=== PATIENT | male | born 1930 | race Caucasian/White ===

== ENCOUNTER 2017-03-20 00:56 | Inpatient (IN) | payer OTHER ==
[~2017-03-20] VITALS: Ht 172.7 cm; Wt 44.9 kg
[2017-03-20 00:56] VITALS: BP_SYST 113
[2017-03-20 04:30] LABS: ANION GAP 6 (5-15); CALCIUM 8.2 mg/dL (8.4-11.0); CHLORIDE 107 mmol/L (98-107); CREATININE 0.99 mg/dL (0.55-1.30); GLUCOSE 91 mg/dL (70-99); POTASSIUM 3.6 mmol/L (3.5-5.1); SODIUM SERUM 141 mmol/L (136-145); UREA NITROGEN, BLOOD 17 mg/dL (8-21)
[2017-03-20 04:35] LABS: ALANINE AMINOTRANSFERASE 12 U/L (12-78); ALBUMIN 2.8 g/dL (3.4-4.8); ASPARTATE AMINOTRANSFERASE 31 U/L (10-37); TOTAL BILIRUBIN 2.2 mg/dL (0.0-1.0); TOTAL PROTEIN, SERUM 6.1 g/dL (6.4-8.3)
[2017-03-20 04:38] LABS: BASOPHILS % (AUTO) 0.3 % (0.0-2.0); EOSINOPHILS % (AUTO) 0.5 % (0.0-4.0); HEMATOCRIT 34.1 % (36-54); HEMOGLOBIN 11.4 g/dL (14.0-18.0); LYMPHOCYTES # (AUTO) 0.6 K/uL (1.0-5.5); LYMPHOCYTES % (AUTO) 9.8 % (20.5-51.5); MEAN CORPUSCULAR HEMOGLOBIN 33 pg (27-31); MEAN CORPUSCULAR HGB CONC 34 % (32-36); MEAN CORPUSCULAR VOLUME 97 fL (79.0-98.0); MONOCYTES # (AUTO) 0.4 K/uL (0.0-1.0); MONOCYTES % (AUTO) 5.8 % (1.7-9.3); NEUTROPHILS % (AUTO) 83.6 % (40.0-70.0); PLATELET COUNT (AUTO) 218 K/uL (130-430); RED BLOOD CELL COUNT(AUTO) 3.52 MIL/uL (4.2-6.2); RED CELL DISTRIBUTION WIDTH 13.6 % (9.0-15.0)
[2017-03-20] MEDS ORDERED: LIDOCAINE 1% 10 MG/ML, 20 ML MDV INJ ONE (06:30)
[2017-03-20] MEDS ORDERED: LORazepam 2 MG/ML VIAL IVP ONE (07:15)
[2017-03-20] MEDS ORDERED: LORazepam 2 MG/ML VIAL (FOR ER USE) ONE (07:27)
[2017-03-20] MEDS ORDERED: ONDANSETRON HCL 4 MG/2 ML VIAL IVP PRN (09:00)
[2017-03-20] MEDS ORDERED: ALBUTEROL SULFATE 0.083% 2.5 MG/3 ML VIAL.NEB INH PRN (09:00)
[2017-03-20] MEDS ORDERED: ERGO500043 PO (10:31)
[2017-03-20 10:32] VITALS: BP_SYST 116
[2017-03-20] MEDS ORDERED: DIATR MEGLU/DIATRIZ SOD 30 ML SOLUTION PO ONE (11:02)
[2017-03-20 12:02] VITALS: BP_SYST 151
[2017-03-20] MEDS: NACL 0.9% 1,000 ML IV SCH (14:04)
[2017-03-20] MEDS: ENOXAPARIN SODIUM 30 MG/0.3 ML SYRINGE SUBCUT SCH (14:58)
[2017-03-20 16:31] VITALS: BP_SYST 112
[2017-03-20 20:00] VITALS: BP_SYST 134
[2017-03-20] MEDS ORDERED: COMMUNICATION ORDER XX SCH (21:15)
[2017-03-20] MEDS ORDERED: COMMUNICATION ORDER XX ONE (21:15)
[2017-03-20 23:29] VITALS: BP_SYST 133
[2017-03-21] MEDS: NACL 0.9% 1,000 ML IV SCH ×2 (03:19→16:41)
[2017-03-21 04:20] VITALS: BP_SYST 126
[2017-03-21 06:57] LABS: BASOPHILS % (AUTO) 0.2 % (0.0-2.0); EOSINOPHILS % (AUTO) 0.8 % (0.0-4.0); HEMATOCRIT 31.8 % (36-54); HEMOGLOBIN 10.7 g/dL (14.0-18.0); LYMPHOCYTES # (AUTO) 0.8 K/uL (1.0-5.5); LYMPHOCYTES % (AUTO) 14.6 % (20.5-51.5); MEAN CORPUSCULAR HEMOGLOBIN 33 pg (27-31); MEAN CORPUSCULAR HGB CONC 34 % (32-36); MEAN CORPUSCULAR VOLUME 97 fL (79.0-98.0); MONOCYTES # (AUTO) 0.3 K/uL (0.0-1.0); MONOCYTES % (AUTO) 5.7 % (1.7-9.3); NEUTROPHILS # (AUTO) 4.4 K/uL (1.8-7.7); NEUTROPHILS % (AUTO) 78.7 % (40.0-70.0); PLATELET COUNT (AUTO) 199 K/uL (130-430); RED BLOOD CELL COUNT(AUTO) 3.28 MIL/uL (4.2-6.2); WHITE BLOOD COUNT (AUTO) 5.5 K/uL (4.8-10.8)
[2017-03-21 07:04] LABS: ANION GAP 8 (5-15); CALCIUM 8.1 mg/dL (8.4-11.0); CHLORIDE 110 mmol/L (98-107); CREATININE 0.95 mg/dL (0.55-1.30); GLUCOSE 74 mg/dL (70-99); POTASSIUM 4.1 mmol/L (3.5-5.1); SODIUM SERUM 144 mmol/L (136-145); UREA NITROGEN, BLOOD 17 mg/dL (8-21)
[2017-03-21 07:52] VITALS: BP_SYST 150
[2017-03-21] MEDS: ENOXAPARIN SODIUM 30 MG/0.3 ML SYRINGE SUBCUT SCH (08:30)
[2017-03-21 09:33] VITALS: BP_SYST 130
[2017-03-21] MEDS ORDERED: MEGESTROL ACETATE 400 MG/10 ML UDC PO ONE (11:15)
[2017-03-21 11:48] VITALS: BP_SYST 137
[2017-03-21 17:11] VITALS: BP_SYST 143
[2017-03-21 23:44] VITALS: BP_SYST 151
[2017-03-22 04:00] VITALS: BP_SYST 150
[2017-03-22] MEDS: NACL 0.9% 1,000 ML IV SCH ×3 (06:25→20:54)
[2017-03-22 07:03] LABS: BASOPHILS % (AUTO) 0.3 % (0.0-2.0); EOSINOPHILS # (AUTO) 0.1 K/uL (0.0-0.4); HEMATOCRIT 30.3 % (36-54); HEMOGLOBIN 10.1 g/dL (14.0-18.0); LYMPHOCYTES # (AUTO) 0.7 K/uL (1.0-5.5); MEAN CORPUSCULAR HEMOGLOBIN 32 pg (27-31); MEAN CORPUSCULAR HGB CONC 33 % (32-36); MEAN CORPUSCULAR VOLUME 97 fL (79.0-98.0); MONOCYTES # (AUTO) 0.3 K/uL (0.0-1.0); MONOCYTES % (AUTO) 5.8 % (1.7-9.3); NEUTROPHILS # (AUTO) 4.4 K/uL (1.8-7.7); NEUTROPHILS % (AUTO) 80.9 % (40.0-70.0); PLATELET COUNT (AUTO) 169 K/uL (130-430); RED BLOOD CELL COUNT(AUTO) 3.12 MIL/uL (4.2-6.2); RED CELL DISTRIBUTION WIDTH 14.2 % (9.0-15.0); WHITE BLOOD COUNT (AUTO) 5.5 K/uL (4.8-10.8)
[2017-03-22 07:12] LABS: ALANINE AMINOTRANSFERASE 11 U/L (12-78); ALBUMIN 2.4 g/dL (3.4-4.8); ANION GAP 5 (5-15); ASPARTATE AMINOTRANSFERASE 36 U/L (10-37); CALCIUM 7.5 mg/dL (8.4-11.0); CHLORIDE 113 mmol/L (98-107); CREATININE 0.71 mg/dL (0.55-1.30); GLUCOSE 96 mg/dL (70-99); POTASSIUM 4.1 mmol/L (3.5-5.1); SODIUM SERUM 144 mmol/L (136-145); TOTAL BILIRUBIN 1.7 mg/dL (0.0-1.0); TOTAL PROTEIN, SERUM 5.2 g/dL (6.4-8.3); UREA NITROGEN, BLOOD 14 mg/dL (8-21)
[2017-03-22 08:00] VITALS: BP_SYST 155
[2017-03-22] MEDS: MEGESTROL ACETATE 400 MG/10 ML UDC PO SCH (09:00)
[2017-03-22] MEDS: ENOXAPARIN SODIUM 30 MG/0.3 ML SYRINGE SUBCUT SCH (09:33)
[2017-03-22 12:00] VITALS: BP_SYST 141
[2017-03-22 16:00] VITALS: BP_SYST 112
[2017-03-22 20:30] VITALS: BP_SYST 123
[2017-03-22 23:11] VITALS: BP_SYST 130
[2017-03-23 03:24] VITALS: BP_SYST 143
[2017-03-23 08:28] VITALS: BP_SYST 147
[2017-03-23] MEDS: ENOXAPARIN SODIUM 30 MG/0.3 ML SYRINGE SUBCUT SCH ×2 (09:00→09:08)
[2017-03-23] MEDS: MEGESTROL ACETATE 400 MG/10 ML UDC PO SCH ×2 (09:00→09:08)
[2017-03-23] MEDS: NACL 0.9% 1,000 ML IV SCH (11:45)
[2017-03-23 12:09] VITALS: BP_SYST 152
[2017-03-23 16:03] VITALS: BP_SYST 120
[2017-03-23 19:30] VITALS: BP_SYST 126
[2017-03-23 21:00] VITALS: BP_SYST 126
[2017-03-24] VITALS (7 sets, daily range): BP systolic 125–151
[2017-03-24] MEDS: NACL 0.9% 1,000 ML IV SCH ×2 (03:15→15:32)
[2017-03-24] MEDS: ENOXAPARIN SODIUM 30 MG/0.3 ML SYRINGE SUBCUT SCH (09:46)
[2017-03-24] MEDS: MEGESTROL ACETATE 400 MG/10 ML UDC PO SCH (09:47)
[2017-03-25] VITALS (7 sets, daily range): BP systolic 121–144
[2017-03-25] MEDS: NACL 0.9% 1,000 ML IV SCH ×2 (05:31→22:18)
[2017-03-25 06:40] LABS: BASOPHILS % (AUTO) 0.2 % (0.0-2.0); EOSINOPHILS # (AUTO) 0.1 K/uL (0.0-0.4); HEMATOCRIT 26.6 % (36-54); HEMOGLOBIN 9.1 g/dL (14.0-18.0); LYMPHOCYTES # (AUTO) 0.5 K/uL (1.0-5.5); LYMPHOCYTES % (AUTO) 10.2 % (20.5-51.5); MEAN CORPUSCULAR HEMOGLOBIN 33 pg (27-31); MEAN CORPUSCULAR HGB CONC 34 % (32-36); MEAN CORPUSCULAR VOLUME 97 fL (79.0-98.0); MONOCYTES # (AUTO) 0.4 K/uL (0.0-1.0); MONOCYTES % (AUTO) 7.3 % (1.7-9.3); NEUTROPHILS % (AUTO) 81.3 % (40.0-70.0); PLATELET COUNT (AUTO) 156 K/uL (130-430); RED BLOOD CELL COUNT(AUTO) 2.74 MIL/uL (4.2-6.2)
[2017-03-25 06:48] LABS: ALANINE AMINOTRANSFERASE 7 U/L (12-78); ANION GAP 8 (5-15); ASPARTATE AMINOTRANSFERASE 30 U/L (10-37); CALCIUM 7.3 mg/dL (8.4-11.0); CHLORIDE 109 mmol/L (98-107); CREATININE 0.48 mg/dL (0.55-1.30); GLUCOSE 83 mg/dL (70-99); POTASSIUM 3.1 mmol/L (3.5-5.1); SODIUM SERUM 139 mmol/L (136-145); TOTAL PROTEIN, SERUM 4.9 g/dL (6.4-8.3); UREA NITROGEN, BLOOD 8 mg/dL (8-21)
[2017-03-25 06:58] LABS: INR 1.1 (0.80-1.20)
[2017-03-25] MEDS ORDERED: CEFAZOLIN 1 GM IVPB PREMIX 50 ML IV ONE (07:00)
[2017-03-25] MEDS: MIDAZOLAM HCL 5 MG/5 ML VIAL ONE ×3 (07:05→08:11)
[2017-03-25] MEDS: MEPERIDINE HCL/PF 100 MG/ML AMP ONE ×3 (07:05→08:11)
[2017-03-25] MEDS: MEGESTROL ACETATE 400 MG/10 ML UDC PO SCH (09:00)
[2017-03-25] MEDS: ENOXAPARIN SODIUM 30 MG/0.3 ML SYRINGE SUBCUT SCH (09:46)
[2017-03-25] MEDS ORDERED: POTASSIUM CHLORIDE 40 MEQ in NS 250 ML IV ONE (10:30)
[2017-03-26 00:11] VITALS: BP_SYST 117
[2017-03-26 04:20] VITALS: BP_SYST 124
[2017-03-26 06:43] LABS: ANION GAP 5 (5-15); CALCIUM 7.4 mg/dL (8.4-11.0); CHLORIDE 107 mmol/L (98-107); CREATININE 0.57 mg/dL (0.55-1.30); GLUCOSE 78 mg/dL (70-99); POTASSIUM 3.9 mmol/L (3.5-5.1); SODIUM SERUM 137 mmol/L (136-145); UREA NITROGEN, BLOOD 7 mg/dL (8-21)
[2017-03-26 06:52] LABS: BASOPHILS % (AUTO) 0.2 % (0.0-2.0); EOSINOPHILS # (AUTO) 0.1 K/uL (0.0-0.4); EOSINOPHILS % (AUTO) 1.8 % (0.0-4.0); HEMOGLOBIN 9.5 g/dL (14.0-18.0); LYMPHOCYTES # (AUTO) 0.5 K/uL (1.0-5.5); LYMPHOCYTES % (AUTO) 9.2 % (20.5-51.5); MEAN CORPUSCULAR HEMOGLOBIN 33 pg (27-31); MEAN CORPUSCULAR HGB CONC 34 % (32-36); MEAN CORPUSCULAR VOLUME 98 fL (79.0-98.0); MONOCYTES # (AUTO) 0.3 K/uL (0.0-1.0); MONOCYTES % (AUTO) 6.6 % (1.7-9.3); NEUTROPHILS % (AUTO) 82.2 % (40.0-70.0); PLATELET COUNT (AUTO) 156 K/uL (130-430); RED BLOOD CELL COUNT(AUTO) 2.87 MIL/uL (4.2-6.2); RED CELL DISTRIBUTION WIDTH 14.1 % (9.0-15.0); WHITE BLOOD COUNT (AUTO) 4.9 K/uL (4.8-10.8)
[2017-03-26 08:00] VITALS: BP_SYST 135
[2017-03-26] MEDS: ENOXAPARIN SODIUM 30 MG/0.3 ML SYRINGE SUBCUT SCH (09:35)
[2017-03-26] MEDS: MEGESTROL ACETATE 400 MG/10 ML UDC PO SCH (09:35)
[2017-03-26] MEDS ORDERED: *TPN PER PHARMACY XX PRN (10:15)
[2017-03-26 11:07] LABS: PHOSPHORUS 1.9 mg/dL (2.7-4.5)
[2017-03-26] MEDS: NACL 0.9% 1,000 ML IV SCH (11:41)
[2017-03-26 12:05] VITALS: BP_SYST 160
[2017-03-26 16:27] VITALS: BP_SYST 159
[2017-03-26] MEDS ORDERED: TPN CENTRAL 0.0001 ML, SODIUM ACETATE 40 MEQ, POTASSIUM CHLORIDE 20 MEQ, K PHOS 12 MM, ... IV SCH ×10 (18:00)
[2017-03-26 19:30] VITALS: BP_SYST 148
[2017-03-27] VITALS (7 sets, daily range): BP systolic 135–171
[2017-03-27] MEDS: FAT EMULSIONS 250 ML IV SCH ×2 (00:16→17:55)
[2017-03-27] MEDS: NACL 0.9% 1,000 ML IV SCH ×3 (01:22→23:39)
[2017-03-27 07:18] LABS: BASOPHILS % (AUTO) 0.2 % (0.0-2.0); EOSINOPHILS % (AUTO) 0.9 % (0.0-4.0); HEMATOCRIT 28.2 % (36-54); HEMOGLOBIN 9.6 g/dL (14.0-18.0); LYMPHOCYTES # (AUTO) 0.4 K/uL (1.0-5.5); LYMPHOCYTES % (AUTO) 7.8 % (20.5-51.5); MEAN CORPUSCULAR HEMOGLOBIN 33 pg (27-31); MEAN CORPUSCULAR HGB CONC 34 % (32-36); MEAN CORPUSCULAR VOLUME 96 fL (79.0-98.0); MONOCYTES # (AUTO) 0.3 K/uL (0.0-1.0); MONOCYTES % (AUTO) 5.7 % (1.7-9.3); NEUTROPHILS # (AUTO) 4.4 K/uL (1.8-7.7); NEUTROPHILS % (AUTO) 85.4 % (40.0-70.0); PLATELET COUNT (AUTO) 167 K/uL (130-430); RED BLOOD CELL COUNT(AUTO) 2.92 MIL/uL (4.2-6.2); RED CELL DISTRIBUTION WIDTH 13.7 % (9.0-15.0); WHITE BLOOD COUNT (AUTO) 5.1 K/uL (4.8-10.8)
[2017-03-27 07:19] LABS: ANION GAP 6 (5-15); CALCIUM 7.2 mg/dL (8.4-11.0); CHLORIDE 104 mmol/L (98-107); CREATININE 0.51 mg/dL (0.55-1.30); GLUCOSE 152 mg/dL (70-99); PHOSPHORUS 2.1 mg/dL (2.7-4.5); SODIUM SERUM 135 mmol/L (136-145); UREA NITROGEN, BLOOD 7 mg/dL (8-21)
[2017-03-27 07:37] LABS: POTASSIUM 2.9 mmol/L (3.5-5.1)
[2017-03-27] MEDS: ENOXAPARIN SODIUM 30 MG/0.3 ML SYRINGE SUBCUT SCH (08:46)
[2017-03-27] MEDS: MEGESTROL ACETATE 400 MG/10 ML UDC PO SCH (08:47)
[2017-03-27] MEDS: VIT D PO SCH ×2 (08:47→11:16)
[2017-03-27] MEDS ORDERED: POTASSIUM CHLORIDE 40 MEQ in NS 250 ML IV ONE (10:00)
[2017-03-27] MEDS ORDERED: DEXTROSE 50%-WATER 50 ML DISP.SYRIN IVP PRN ×2 (12:00)
[2017-03-27] MEDS ORDERED: GLUCOSE 15 GM GEL (in 37.5 GM TUBE) PO PRN ×2 (12:00)
[2017-03-27 15:41] LABS: BILIRUBIN,URINE NEGATIVE (NEGATIVE); BLOOD, URINE NEGATIVE (NEGATIVE); CLARITY/URINE CLEAR (CLEAR); COLOR,URINE YELLOW (YELLOW); GLUCOSE,URINE NEGATIVE (NEGATIVE); KETONES,URINE NEGATIVE (NEGATIVE); LEUKOCYTE ESTERASE ,URINE NEGATIVE (NEGATIVE); NITRITE, URINE NEGATIVE (NEGATIVE); PH,URINE 5.5 (5.0-8.0); PROTEIN URINE NEGATIVE (NEGATIVE)
[2017-03-27] MEDS ORDERED: POTASSIUM CHLORIDE IV SCH ×10 (18:00)
[2017-03-27] MEDS ORDERED: [UNRECOGNIZED DRUG - OTHER] IV SCH ×10 (18:00)
[2017-03-27] MEDS ORDERED: SODIUM ACETATE IV SCH ×10 (18:00)
[2017-03-27] MEDS ORDERED: TPN CENTRAL IV SCH ×10 (18:00)
[2017-03-27] MEDS ORDERED: K PHOS IV SCH ×10 (18:00)
[2017-03-27] MEDS: INSULIN REGULAR, HUMAN 100 UNITS/ML, 10 ML VIAL (novoLIN R) SUBCUT PRN (18:10)
[2017-03-28] VITALS (13 sets, daily range): BP systolic 91–178
[2017-03-28 06:44] LABS: ALANINE AMINOTRANSFERASE 13 U/L (12-78); ALBUMIN 2.2 g/dL (3.4-4.8); ANION GAP 6 (5-15); ASPARTATE AMINOTRANSFERASE 39 U/L (10-37); CALCIUM 7.5 mg/dL (8.4-11.0); CHLORIDE 101 mmol/L (98-107); CREATININE 0.65 mg/dL (0.55-1.30); GLUCOSE 130 mg/dL (70-99); PHOSPHORUS 2.3 mg/dL (2.7-4.5); POTASSIUM 3.5 mmol/L (3.5-5.1); SODIUM SERUM 135 mmol/L (136-145); TOTAL BILIRUBIN 1.3 mg/dL (0.0-1.0); TOTAL PROTEIN, SERUM 5.6 g/dL (6.4-8.3); UREA NITROGEN, BLOOD 8 mg/dL (8-21)
[2017-03-28 06:58] LABS: BASOPHILS % (AUTO) 0.1 % (0.0-2.0); EOSINOPHILS % (AUTO) 0.1 % (0.0-4.0); HEMATOCRIT 30.2 % (36-54); HEMOGLOBIN 10.3 g/dL (14.0-18.0); LYMPHOCYTES # (AUTO) 0.3 K/uL (1.0-5.5); LYMPHOCYTES % (AUTO) 4.1 % (20.5-51.5); MEAN CORPUSCULAR HEMOGLOBIN 33 pg (27-31); MEAN CORPUSCULAR HGB CONC 34 % (32-36); MEAN CORPUSCULAR VOLUME 96 fL (79.0-98.0); MONOCYTES # (AUTO) 0.6 K/uL (0.0-1.0); MONOCYTES % (AUTO) 8.1 % (1.7-9.3); NEUTROPHILS # (AUTO) 6.6 K/uL (1.8-7.7); NEUTROPHILS % (AUTO) 87.6 % (40.0-70.0); PLATELET COUNT (AUTO) 181 K/uL (130-430); RED BLOOD CELL COUNT(AUTO) 3.16 MIL/uL (4.2-6.2); WHITE BLOOD COUNT (AUTO) 7.5 K/uL (4.8-10.8)
[2017-03-28] MEDS: ACETAMINOPHEN 325 MG TABLET PO PRN ×2 (08:49→08:52)
[2017-03-28] MEDS: MEGESTROL ACETATE 400 MG/10 ML UDC PO SCH (08:51)
[2017-03-28] MEDS: ENOXAPARIN SODIUM 30 MG/0.3 ML SYRINGE SUBCUT SCH (09:37)
[2017-03-28] MEDS ORDERED: GLYCOPYRROLATE 0.2 MG/ML VIAL IJ ONE (14:13)
[2017-03-28] MEDS ORDERED: MIDAZOLAM HCL 5 MG/5 ML VIAL IVP ONE (14:13)
[2017-03-28] MEDS ORDERED: PROPOFOL 200MG/ 20ML VIAL (DIPRIVAN) IV ONE (14:13)
[2017-03-28] MEDS ORDERED: ROCURONIUM BROMIDE 10 MG/ML (ZEMURON) IV ONE (14:13)
[2017-03-28] MEDS ORDERED: ONDANSETRON HCL 4 MG/2 ML VIAL IVP ONE (14:13)
[2017-03-28] MEDS ORDERED: NEOSTIGMINE METHYLSULFATE 1 MG/ML, 10 ML VIAL IVP ONE (14:13)
[2017-03-28] MEDS ORDERED: SEVOFLURANE 15 MIN GAS INH ONE (14:13)
[2017-03-28] MEDS ORDERED: LR 1,000 ML IV.SOLN IV ONE (14:13)
[2017-03-28] MEDS ORDERED: fentaNYL CITRATE/PF 100 MCG/2 ML AMP IVP ONE (14:13)
[2017-03-28] MEDS ORDERED: LR 1,000 ML IV SCH (15:11)
[2017-03-28] MEDS ORDERED: MEPERIDINE HCL/PF 25 MG/ML DISP.SYRIN IVP PRN ×2 (15:15)
[2017-03-28] MEDS ORDERED: HYDROmorphone 1 MG INJ. 1 MG/ML AMPUL IVP PRN (15:15)
[2017-03-28] MEDS ORDERED: HYDROmorphone 2 MG/ML VIAL IVP PRN (15:15)
[2017-03-28] MEDS ORDERED: ONDANSETRON HCL 4 MG/2 ML VIAL IVP PRN (15:15)
[2017-03-28] MEDS: NACL 0.9% 1,000 ML IV SCH (17:29)
[2017-03-28] MEDS ORDERED: SODIUM ACETATE IV SCH ×10 (18:00)
[2017-03-28] MEDS ORDERED: POTASSIUM CHLORIDE IV SCH ×10 (18:00)
[2017-03-28] MEDS ORDERED: K PHOS IV SCH ×10 (18:00)
[2017-03-28] MEDS ORDERED: [UNRECOGNIZED DRUG - OTHER] IV SCH ×10 (18:00)
[2017-03-28] MEDS ORDERED: TPN CENTRAL IV SCH ×10 (18:00)
[2017-03-28 18:29] LABS: ABG TOTAL HEMOGLOBIN 11.9 G/dL (12.0-18.0); BLOOD GAS BASE EXCESS -2.6 mmol/L (-3.0-3.0); BLOOD GAS COHb% 0.1 % (0.5-1.5); BLOOD GAS PH 7.498 (7.350-7.450); BLOOD O2Hb% 98.5 % (94.0-97.0)
[2017-03-28] MEDS ORDERED: LORazepam 2 MG/ML VIAL IVP PRN (18:30)
[2017-03-28] MEDS: FAT EMULSIONS 250 ML IV SCH (20:55)
[2017-03-29] VITALS (29 sets, daily range): BP systolic 121–155
[2017-03-29] MEDS: INSULIN REGULAR, HUMAN 100 UNITS/ML, 10 ML VIAL (novoLIN R) SUBCUT PRN ×2 (00:17→05:49)
[2017-03-29] MEDS: LORazepam 2 MG/ML VIAL IVP PRN (03:51)
[2017-03-29] MEDS: NACL 0.9% 1,000 ML IV SCH ×2 (06:38→18:36)
[2017-03-29 07:24] LABS: BASOPHILS % (AUTO) 0.1 % (0.0-2.0); HEMATOCRIT 27.8 % (36-54); HEMOGLOBIN 9.7 g/dL (14.0-18.0); LYMPHOCYTES # (AUTO) 0.2 K/uL (1.0-5.5); LYMPHOCYTES % (AUTO) 2.3 % (20.5-51.5); MEAN CORPUSCULAR HEMOGLOBIN 34 pg (27-31); MEAN CORPUSCULAR HGB CONC 35 % (32-36); MEAN CORPUSCULAR VOLUME 96 fL (79.0-98.0); MONOCYTES # (AUTO) 0.6 K/uL (0.0-1.0); MONOCYTES % (AUTO) 5.7 % (1.7-9.3); NEUTROPHILS # (AUTO) 9.1 K/uL (1.8-7.7); NEUTROPHILS % (AUTO) 91.9 % (40.0-70.0); PLATELET COUNT (AUTO) 186 K/uL (130-430); RED BLOOD CELL COUNT(AUTO) 2.89 MIL/uL (4.2-6.2); RED CELL DISTRIBUTION WIDTH 14.1 % (9.0-15.0); WHITE BLOOD COUNT (AUTO) 9.9 K/uL (4.8-10.8)
[2017-03-29 08:14] LABS: ANION GAP 9 (5-15); CHLORIDE 98 mmol/L (98-107); POTASSIUM 4.4 mmol/L (3.5-5.1); SODIUM SERUM 131 mmol/L (136-145)
[2017-03-29 08:15] LABS: ALANINE AMINOTRANSFERASE 14 U/L (12-78); ASPARTATE AMINOTRANSFERASE 112 U/L (10-37); CALCIUM 7.4 mg/dL (8.4-11.0); CREATININE 0.78 mg/dL (0.55-1.30); GLUCOSE 133 mg/dL (70-99); TOTAL BILIRUBIN 1.8 mg/dL (0.0-1.0); TOTAL PROTEIN, SERUM 5.3 g/dL (6.4-8.3); UREA NITROGEN, BLOOD 16 mg/dL (8-21)
[2017-03-29 08:16] LABS: ALBUMIN 2.1 g/dL (3.4-4.8)
[2017-03-29] MEDS: ENOXAPARIN SODIUM 30 MG/0.3 ML SYRINGE SUBCUT SCH (08:41)
[2017-03-29] MEDS: MEGESTROL ACETATE 400 MG/10 ML UDC PO SCH (08:42)
[2017-03-29 10:03] LABS: ABG TOTAL HEMOGLOBIN 10.2 G/dL (12.0-18.0); BLOOD GAS BASE EXCESS 2.9 mmol/L (-3.0-3.0); BLOOD GAS COHb% 0.3 % (0.5-1.5); BLOOD GAS HHB 1.7 % (0.0-6.0); BLOOD GAS PH 7.562 (7.350-7.450); BLOOD O2Hb% 97.4 % (94.0-97.0)
[2017-03-29] MEDS ORDERED: SODIUM CHLORIDE IV SCH ×11 (18:00)
[2017-03-29] MEDS ORDERED: SODIUM ACETATE IV SCH ×11 (18:00)
[2017-03-29] MEDS ORDERED: TPN CENTRAL IV SCH ×11 (18:00)
[2017-03-29] MEDS ORDERED: [UNRECOGNIZED DRUG - OTHER] IV SCH ×11 (18:00)
[2017-03-29] MEDS: FAT EMULSIONS 250 ML IV SCH (18:36)
[2017-03-30] VITALS (35 sets, daily range): BP systolic 113–166
[2017-03-30] MEDS: NACL 0.9% 1,000 ML IV SCH (06:30)
[2017-03-30 06:56] LABS: ALANINE AMINOTRANSFERASE 16 U/L (12-78); ALBUMIN 1.8 g/dL (3.4-4.8); ANION GAP 5 (5-15); ASPARTATE AMINOTRANSFERASE 93 U/L (10-37); CALCIUM 7.2 mg/dL (8.4-11.0); CHLORIDE 100 mmol/L (98-107); CREATININE 0.55 mg/dL (0.55-1.30); GLUCOSE 102 mg/dL (70-99); POTASSIUM 3.6 mmol/L (3.5-5.1); SODIUM SERUM 131 mmol/L (136-145); TOTAL BILIRUBIN 2.1 mg/dL (0.0-1.0); TOTAL PROTEIN, SERUM 4.7 g/dL (6.4-8.3); UREA NITROGEN, BLOOD 15 mg/dL (8-21)
[2017-03-30 07:18] LABS: BASOPHILS % (AUTO) 0.1 % (0.0-2.0); EOSINOPHILS % (AUTO) 0.1 % (0.0-4.0); HEMATOCRIT 23.2 % (36-54); HEMOGLOBIN 7.9 g/dL (14.0-18.0); LYMPHOCYTES # (AUTO) 0.3 K/uL (1.0-5.5); LYMPHOCYTES % (AUTO) 3.8 % (20.5-51.5); MEAN CORPUSCULAR HEMOGLOBIN 33 pg (27-31); MEAN CORPUSCULAR HGB CONC 34 % (32-36); MONOCYTES # (AUTO) 0.3 K/uL (0.0-1.0); MONOCYTES % (AUTO) 4.9 % (1.7-9.3); NEUTROPHILS # (AUTO) 6.1 K/uL (1.8-7.7); NEUTROPHILS % (AUTO) 91.1 % (40.0-70.0); PLATELET COUNT (AUTO) 127 K/uL (130-430); RED BLOOD CELL COUNT(AUTO) 2.37 MIL/uL (4.2-6.2); RED CELL DISTRIBUTION WIDTH 14.6 % (9.0-15.0); WHITE BLOOD COUNT (AUTO) 6.7 K/uL (4.8-10.8)
[2017-03-30 08:07] LABS: MEAN CORPUSCULAR VOLUME 98 fL (79.0-98.0)
[2017-03-30] MEDS: ENOXAPARIN SODIUM 30 MG/0.3 ML SYRINGE SUBCUT SCH (08:45)
[2017-03-30] MEDS: MEGESTROL ACETATE 400 MG/10 ML UDC PO SCH (08:45)
[2017-03-30] MEDS ORDERED: FUROSEMIDE 20 MG/2 ML VIAL IVP ONE (14:45)
[2017-03-30] MEDS: LORazepam 2 MG/ML VIAL IVP PRN (15:53)
[2017-03-30] MEDS ORDERED: SODIUM CHLORIDE IV SCH ×11 (18:00)
[2017-03-30] MEDS ORDERED: SODIUM ACETATE IV SCH ×11 (18:00)
[2017-03-30] MEDS ORDERED: TPN CENTRAL IV SCH ×11 (18:00)
[2017-03-30] MEDS ORDERED: [UNRECOGNIZED DRUG - OTHER] IV SCH ×11 (18:00)
[2017-03-30] MEDS: FAT EMULSIONS 250 ML IV SCH (18:33)
[2017-03-30] MEDS: TPN CENTRAL IV SCH ×11 (20:24)
[2017-03-30] MEDS: [UNRECOGNIZED DRUG - OTHER] IV SCH ×11 (20:24)
[2017-03-30] MEDS: SODIUM ACETATE IV SCH ×11 (20:24)
[2017-03-30] MEDS: SODIUM CHLORIDE IV SCH ×11 (20:24)
[2017-03-31] VITALS (28 sets, daily range): BP systolic 120–159
[2017-03-31 07:13] LABS: BASOPHILS % (AUTO) 0.2 % (0.0-2.0); EOSINOPHILS % (AUTO) 0.3 % (0.0-4.0); HEMATOCRIT 26.6 % (36-54); HEMOGLOBIN 8.9 g/dL (14.0-18.0); LYMPHOCYTES # (AUTO) 0.2 K/uL (1.0-5.5); LYMPHOCYTES % (AUTO) 3.1 % (20.5-51.5); MEAN CORPUSCULAR HEMOGLOBIN 32 pg (27-31); MEAN CORPUSCULAR HGB CONC 33 % (32-36); MEAN CORPUSCULAR VOLUME 97 fL (79.0-98.0); MONOCYTES # (AUTO) 0.2 K/uL (0.0-1.0); MONOCYTES % (AUTO) 3.3 % (1.7-9.3); NEUTROPHILS # (AUTO) 5.9 K/uL (1.8-7.7); NEUTROPHILS % (AUTO) 93.1 % (40.0-70.0); PLATELET COUNT (AUTO) 115 K/uL (130-430); RED BLOOD CELL COUNT(AUTO) 2.76 MIL/uL (4.2-6.2); RED CELL DISTRIBUTION WIDTH 13.9 % (9.0-15.0); WHITE BLOOD COUNT (AUTO) 6.3 K/uL (4.8-10.8)
[2017-03-31 07:34] LABS: ALANINE AMINOTRANSFERASE 16 U/L (12-78); ALBUMIN 1.6 g/dL (3.4-4.8); ANION GAP 7 (5-15); ASPARTATE AMINOTRANSFERASE 59 U/L (10-37); CALCIUM 7.4 mg/dL (8.4-11.0); CHLORIDE 99 mmol/L (98-107); CREATININE 0.52 mg/dL (0.55-1.30); GLUCOSE 115 mg/dL (70-99); PHOSPHORUS 3.9 mg/dL (2.7-4.5); SODIUM SERUM 132 mmol/L (136-145); TOTAL BILIRUBIN 2.8 mg/dL (0.0-1.0); TOTAL PROTEIN, SERUM 4.7 g/dL (6.4-8.3); TRIGLYCERIDES 25 mg/dL (30-150); UREA NITROGEN, BLOOD 17 mg/dL (8-21)
[2017-03-31] MEDS: MEGESTROL ACETATE 400 MG/10 ML UDC PO SCH (09:00)
[2017-03-31] MEDS: NACL 0.9% 1,000 ML IV SCH (10:30)
[2017-03-31 14:08] LABS: BLOOD GAS PH 7.555 (7.350-7.450)
[2017-03-31 14:09] LABS: ABG TOTAL HEMOGLOBIN 9.6 G/dL (12.0-18.0); BLOOD GAS BASE EXCESS 2.6 mmol/L (-3.0-3.0); BLOOD GAS COHb% 0.3 % (0.5-1.5); BLOOD GAS HHB 1.8 % (0.0-6.0); BLOOD O2Hb% 97.6 % (94.0-97.0)
[2017-03-31] MEDS: SODIUM ACETATE IV SCH ×11 (18:57)
[2017-03-31] MEDS: TPN CENTRAL IV SCH ×11 (18:57)
[2017-03-31] MEDS: [UNRECOGNIZED DRUG - OTHER] IV SCH ×11 (18:57)
[2017-03-31] MEDS: SODIUM CHLORIDE IV SCH ×11 (18:57)
[2017-03-31] MEDS: FAT EMULSIONS 250 ML IV SCH (18:58)
[2017-04-01] VITALS (24 sets, daily range): BP systolic 64–178
[2017-04-01 06:48] LABS: BASOPHILS % (AUTO) 0.5 % (0.0-2.0); EOSINOPHILS % (AUTO) 0.2 % (0.0-4.0); HEMATOCRIT 25.5 % (36-54); HEMOGLOBIN 8.6 g/dL (14.0-18.0); LYMPHOCYTES # (AUTO) 0.2 K/uL (1.0-5.5); MEAN CORPUSCULAR HEMOGLOBIN 32 pg (27-31); MEAN CORPUSCULAR HGB CONC 34 % (32-36); MEAN CORPUSCULAR VOLUME 96 fL (79.0-98.0); MONOCYTES # (AUTO) 0.2 K/uL (0.0-1.0); MONOCYTES % (AUTO) 4.7 % (1.7-9.3); NEUTROPHILS # (AUTO) 4.7 K/uL (1.8-7.7); NEUTROPHILS % (AUTO) 91.6 % (40.0-70.0); PLATELET COUNT (AUTO) 130 K/uL (130-430); RED BLOOD CELL COUNT(AUTO) 2.67 MIL/uL (4.2-6.2); RED CELL DISTRIBUTION WIDTH 13.9 % (9.0-15.0); WHITE BLOOD COUNT (AUTO) 5.1 K/uL (4.8-10.8)
[2017-04-01 07:14] LABS: ANION GAP 5 (5-15); CALCIUM 7.3 mg/dL (8.4-11.0); CHLORIDE 99 mmol/L (98-107); CREATININE 0.59 mg/dL (0.55-1.30); GLUCOSE 124 mg/dL (70-99); POTASSIUM 3.1 mmol/L (3.5-5.1); SODIUM SERUM 132 mmol/L (136-145); UREA NITROGEN, BLOOD 19 mg/dL (8-21)
[2017-04-01] MEDS: MEGESTROL ACETATE 400 MG/10 ML UDC PO SCH (09:00)
[2017-04-01] MEDS ORDERED: KCL 40 mEq in 100 mL (PREMIX) 40 MEQ, LIDOCAINE JECT 2% PF 100 MG 75 MG in NS 150 ML IV ONE (12:15)
[2017-04-01] MEDS: INSULIN REGULAR, HUMAN 100 UNITS/ML, 10 ML VIAL (novoLIN R) SUBCUT PRN (12:43)
[2017-04-01] MEDS ORDERED: MORPHINE 2 MG/ML INJ. SYRINGE IVP PRN (13:00)
[2017-04-01] MEDS ORDERED: NALOXONE HCL 0.4 MG/ML AMP (NARCAN) ONE (16:29)
[2017-04-01] MEDS ORDERED: EPINEPHrine JECT 1 MG/10 ML SYR ONE (16:41)
[2017-04-01] MEDS ORDERED: NOREPINEPHRINE 4 MG/4 ML VIAL IV ONE ×4 (16:49→23:33)
[2017-04-01] MEDS ORDERED: SODIUM BICARBONATE 8.4% JECT 50 MEQ/50 ML SYRINGE ONE ×2 (17:23→23:07)
[2017-04-01] MEDS ORDERED: [UNRECOGNIZED DRUG - OTHER] IV SCH ×11 (18:00)
[2017-04-01] MEDS ORDERED: SODIUM CHLORIDE IV SCH ×11 (18:00)
[2017-04-01] MEDS ORDERED: TPN CENTRAL IV SCH ×11 (18:00)
[2017-04-01] MEDS ORDERED: SODIUM ACETATE IV SCH ×11 (18:00)
[2017-04-01 18:16] LABS: ABG TOTAL HEMOGLOBIN 10.5 G/dL (12.0-18.0); BLOOD GAS BASE EXCESS -12.5 mmol/L (-3.0-3.0); BLOOD GAS PH 7.166 (7.350-7.450)
[2017-04-01 18:17] LABS: BLOOD GAS COHb% 0.2 % (0.5-1.5); BLOOD GAS HHB 1.5 % (0.0-6.0)
[2017-04-01] MEDS ORDERED: ALBUMIN HUMAN 25% 100 ML IV ONE ×2 (19:00→19:04)
[2017-04-01] MEDS ORDERED: PHENYLEPHRINE HCL 10 MG/ML VIAL (NEOSYNEPHRINE) ONE ×4 (19:07→23:48)
[2017-04-01] MEDS: PHENYLEPHRINE HCL 30 MG in NS 247 ML IV PRN ×3 (19:33→22:58)
[2017-04-01] MEDS: DOPamine PREMIX 250 ML IV PRN (21:07)
[2017-04-01] MEDS: NACL 0.9% 1,000 ML IV SCH (21:17)
[2017-04-01] MEDS: NOREPINEPHRINE BITARTRATE 4 MG in D5W 246 ML IV PRN (21:30)
[2017-04-01] MEDS ORDERED: NACL 0.9% 1,000 ML IV ONE (22:01)
[2017-04-01] MEDS ORDERED: COMMUNICATION ORDER XX ONE ×2 (22:15→22:45)
[2017-04-01] MEDS ORDERED: VASOPRESSIN 200 UNITS in D5W 90 ML IV PRN (22:15)
[2017-04-01 22:38] LABS: BLOOD GAS PH 7.301 (7.350-7.450)
[2017-04-01 22:39] LABS: ABG TOTAL HEMOGLOBIN 8.1 G/dL (12.0-18.0); BLOOD GAS BASE EXCESS -8.7 mmol/L (-3.0-3.0); BLOOD GAS COHb% 0.3 % (0.5-1.5); BLOOD O2Hb% 97.4 % (94.0-97.0)
[2017-04-01] MEDS ORDERED: VANCOMYCIN HCL 750 MG in NS 250 ML IV ONE (23:00)
[2017-04-01] MEDS ORDERED: PIPERACILLIN/TAZOBACTAM 3.375 GM/VIAL (ZOSYN) IV ONE (23:02)
[2017-04-01] MEDS ORDERED: VANCOMYCIN HCL 1000 MG/VIAL IV ONE (23:03)
[2017-04-01] MEDS ORDERED: SODIUM BICARBONATE IV SCH (23:45)
[2017-04-01] MEDS: ZOSYN (PIPERACILLIN/TAZO) 3.375 GM in DEX-ISO (50ml) IV SCH (23:58)
[2017-04-02] VITALS (8 sets, daily range): BP systolic 66–97
[2017-04-02] MEDS ORDERED: NACL 0.9% 1,000 ML IV PRN (00:20)
[2017-04-02] MEDS: D5/0.45 NS 1,000 ML IV SCH ×2 (00:27→04:41)
[2017-04-02] MEDS ORDERED: COMMUNICATION ORDER XX ONE ×3 (00:30→03:00)
[2017-04-02] MEDS: PHENYLEPHRINE HCL 30 MG in NS 247 ML IV PRN ×2 (00:34→02:27)
[2017-04-02] MEDS: INSULIN REGULAR, HUMAN 100 UNITS/ML, 10 ML VIAL (novoLIN R) SUBCUT PRN ×2 (00:40→06:56)
[2017-04-02] MEDS: NOREPINEPHRINE BITARTRATE 4 MG in D5W 246 ML IV PRN ×4 (01:13→07:34)
[2017-04-02] MEDS: EPINEPHrine JECT 2 MG in NS 230 ML IV PRN ×2 (01:51→05:01)
[2017-04-02] MEDS ORDERED: PHENYLEPHRINE HCL 10 MG/ML VIAL (NEOSYNEPHRINE) ONE ×2 (02:08→04:20)
[2017-04-02 02:22] LABS: BLOOD GAS PH 7.108 (7.350-7.450)
[2017-04-02 02:23] LABS: ABG TOTAL HEMOGLOBIN 4.8 G/dL (12.0-18.0); BLOOD GAS BASE EXCESS -15.9 mmol/L (-3.0-3.0); BLOOD GAS COHb% 0.3 % (0.5-1.5); BLOOD GAS HHB 9.2 % (0.0-6.0); BLOOD O2Hb% 89.9 % (94.0-97.0)
[2017-04-02] MEDS ORDERED: SODIUM BICARBONATE 8.4% JECT 50 MEQ/50 ML SYRINGE IVP ONE ×2 (02:45→08:00)
[2017-04-02] MEDS: DOPamine PREMIX 250 ML IV PRN ×2 (02:49→07:28)
[2017-04-02] MEDS ORDERED: NOREPINEPHRINE 4 MG/4 ML VIAL IV ONE ×3 (03:09→06:52)
[2017-04-02] MEDS ORDERED: SODIUM BICARBONATE IV SCH (03:15)
[2017-04-02] MEDS: ZOSYN (PIPERACILLIN/TAZO) 3.375 GM in DEX-ISO (50ml) IV SCH (06:41)
[2017-04-02] MEDS ORDERED: EPINEPHrine JECT 1 MG/10 ML SYR IVP ONE (08:00)
[2017-04-02] MEDS ORDERED: DEXTROSE 50% JECT 50 ML DISP.SYRIN IVP ONE (08:00)
[2017-04-02] MEDS ORDERED: ATROPINE SULFATE 1 MG/10 ML SYRINGE IVP ONE (08:00)
== END 2017-04-02 07:44 | disposition expired | DRG 344 ==
LOC: SED 00:56 → SMU 08:58 → OBSVTOIN 03-21 14:53 → SMU 03-27 08:43 → SIC 03-28 16:48
PROVIDERS: ADMIT Internal Medicine; ATTEND Internal Medicine
PROC: 08QPXZZ Repair Left Upper Eyelid, External Approach (ICD-10-PCS; 2017-03-20)
PROC: 0DB68ZX Excision of Stomach, Via Natural or Artificial Opening Endoscopic, Diagnostic (ICD-10-PCS; 2017-03-25)
PROC: 5A1945Z Respiratory Ventilation, 24-96 Consecutive Hours (ICD-10-PCS; 2017-03-28)
PROC: 0BH17EZ Insertion of Endotracheal Airway into Trachea, Via Natural or Artificial Opening (ICD-10-PCS; 2017-03-28)
PROC: 0DHA3UZ Insertion of Feeding Device into Jejunum, Percutaneous Approach (ICD-10-PCS; 2017-03-28)
PROC: 3E0H76Z Introduction of Nutritional Substance into Lower GI, Via Natural or Artificial Opening (ICD-10-PCS; 2017-03-28)
PROC: 0D9A40Z Drainage of Jejunum with Drainage Device, Percutaneous Endoscopic Approach (ICD-10-PCS; principal; 2017-03-28 14:30)
PROC: 30233N1 Transfusion of Nonautologous Red Blood Cells into Peripheral Vein, Percutaneous Approach (ICD-10-PCS; 2017-03-30)
DX: C16.9 Malignant neoplasm of stomach, unspecified (principal); J96.90 Respiratory failure, unspecified, unspecified whether with hypoxia or hypercapnia; C78.7 Secondary malignant neoplasm of liver and intrahepatic bile duct; Z68.1 Body mass index [BMI] 19.9 or less, adult; E44.1 Mild protein-calorie malnutrition; S01.112A Laceration without foreign body of left eyelid and periocular area, initial encounter; W19.XXXA Unspecified fall, initial encounter; R13.10 Dysphagia, unspecified; R62.7 Adult failure to thrive; R41.82 Altered mental status, unspecified; D64.9 Anemia, unspecified; F03.90 Unspecified dementia, unspecified severity, without behavioral disturbance, psychotic disturbance, mood disturbance, and anxiety; K21.9 Gastro-esophageal reflux disease without esophagitis; S09.90XA Unspecified injury of head, initial encounter; Y93.89 Activity, other specified; Y92.89 Other specified places as the place of occurrence of the external cause; Y99.8 Other external cause status; Z90.3 Acquired absence of stomach [part of]; E87.6 Hypokalemia
CPT/HCPCS: 36415; 36600; 43246; 70450-TC; 71010; 71250-TC; 72125-TC; 80048; 80053; 81003; 82803-TC; 82962; 83735-TC; 84100-TC; 84478-TC; 85025; 85610-TC; 85730-TC; 86886; 86900; 86901; 86920; 87070-TC; 87081; 87186-TC; 87205-TC; 88305; 88312; 88313; 94002; 94003; 94640; 96374; 97110-GP; 97116-GP; 97530-GP; 99285; C1751; C1769; G0378; J0171; J0461; J0610; J0690; J1265; J1650; J1815; J1940; J2001; J2060; J2175; J2250; J2270; J2310; J2370; J2405; J2543; J2704; J2710; J3010; J3370; J3475; J3480; J3490; J7030; J7040; J7050; J7060; J7120; J7131; P9021; P9046; Q9964